=== PATIENT | female | born 1960 | race Caucasian/White ===

== ENCOUNTER 2020-09-04 15:18 | Inpatient (IN) | payer OTHER ==
[~2020-09-04] VITALS: Ht 162.6 cm; Wt 74.8 kg
[2020-09-04] MEDS ORDERED: PANTOPRAZOLE 40 MG 10ML VIAL IV NR (16:05)
[2020-09-04] MEDS ORDERED: ONDANSETRON HCL INJ 2MG/ML 2ML 2 MG/ML VIAL IV NR (16:05)
[2020-09-04] MEDS ORDERED: SODIUM CHLORIDE 0.9% 1000ML 1,000 ML IV STA (16:05)
[2020-09-04 16:22] LABS: BASOPHILS % 0.3 % (0.0-1.0); HEMATOCRIT 44.9 % (34.2-44.1); HEMOGLOBIN 15.6 g/dL (12.0-16.0); LYMPHOCYTES % 8.7 % (18.0-39.1); MEAN CORPUSCULAR HEMOGLOBIN 31.5 pg (28-32); MEAN CORPUSCULAR HGB CONC 34.7 g/dL (31-35); MEAN CORPUSCULAR VOLUME 90.5 fL (81-99); MONOCYTES # (AUTO) 0.7 (0.2-0.8); MONOCYTES % 5.9 % (4.4-11.3); NEUTROPHILS % 84.7 % (38.7-80.0); PLATELET COUNT 220 x10e3/uL (140-360); RED BLOOD COUNT 4.96 x10e6/uL (3.6-5.1); RED CELL DISTRIBUTION WIDTH 12.9 % (11.7-14.4)
[2020-09-04 16:26] LABS: INR 1.02
[2020-09-04 16:27] LABS: PARTIAL THROMBOPLASTIN TIME 33.7 seconds (23.8-35.5)
[2020-09-04 16:36] LABS: ALBUMIN 3.6 g/dL (3.5-5.0); ALBUMIN/GLOBULIN RATIO 0.8 (0.8-2.0); CALCIUM 9.5 mg/dL (8.4-10.2); CREATININE, SERUM 1.17 mg/dL (0.57-1.11); MAGNESIUM 1.7 MG/DL (1.3-2.1)
[2020-09-04 16:43] LABS: CREATINE KINASE MB 0.7 ng/mL (0-5.0)
[2020-09-04] MEDS ORDERED: POTASSIUM CHLORIDE 20 MEQ TAB CR PO NR (17:00)
[2020-09-04] MEDS ORDERED: IOPAMIDOL 370 MG/ML 200 ML INFUS..BTL INJ ONE (17:22)
[2020-09-04] MEDS ORDERED: SODIUM CHLORIDE 0.9% 50ML 50 ML ONE ×2 (17:22→19:43)
[2020-09-04 17:40] LABS: AMYLASE 70 U/L (25-125); LIPASE 18 U/L (8-78)
[2020-09-04 18:04] LABS: CLARITY,URINE CLOUDY (CLEAR); COLOR,URINE YELLOW (YELLOW); KETONES,URINE TRACE (NEGATIVE); LEUKOCYTE ESTERASE ,URINE 1+ (NEGATIVE); NITRITE,URINE POSITIVE (NEGATIVE); PROTEIN,URINE DIPSTICK >=300 (NEGATIVE)
[2020-09-04 18:19] LABS: BACTERIA,URINE MANY /HPF; EPITHELIAL CELLS,URINE FEW /LPF; RBC,URINE 21-50 /HPF (0-5); RENAL EPITHELIAL CELLS,URINE FEW; WBC,URINE (MAN) >50 /HPF (0-5)
[2020-09-04] MEDS ORDERED: CEFTRIAXONE SOD 1 GM/50 ML BAG IV ONE (19:30)
[2020-09-04] MEDS: SODIUM CHLORIDE 0.9% 1000ML 1,000 ML IV SCH (19:42)
[2020-09-04] MEDS ORDERED: CEFTRIAXONE SOD 1 GM VIAL ONE (19:42)
[2020-09-04 21:00] VITALS: BP 169/94
[2020-09-04 21:25] VITALS: BP 169/94
[2020-09-04 21:31] VITALS: BP 169/94
[2020-09-04] MEDS ORDERED: PLAVIX75 MG PO (21:35)
[2020-09-04] MEDS ORDERED: CYMBALTA60 MG PO (21:35)
[2020-09-04] MEDS ORDERED: METOPROLOL SUC100 MG PO (21:35)
[2020-09-04] MEDS: ONDANSETRON HCL INJ 2MG/ML 2ML 2 MG/ML VIAL IV PRN (22:30)
[2020-09-05] VITALS (8 sets, daily range): BP systolic 124–159; BP diastolic 74–98
[2020-09-05] MEDS: TRAMADOL HCL 50 MG TAB PO PRN ×2 (00:38→16:00)
[2020-09-05] MEDS: SODIUM CHLORIDE 0.9% 1000ML 1,000 ML IV SCH ×4 (05:20→20:37)
[2020-09-05 06:24] LABS: BASOPHILS % 0.5 % (0.0-1.0); EOSINOPHILS # (AUTO) 0.2 (0.0-0.4); EOSINOPHILS % 2.5 % (0.0-6.0); HEMATOCRIT 37.3 % (34.2-44.1); HEMOGLOBIN 12.4 g/dL (12.0-16.0); LYMPHOCYTES # (AUTO) 1.6 (1.0-3.2); LYMPHOCYTES % 18.1 % (18.0-39.1); MEAN CORPUSCULAR HEMOGLOBIN 31.2 pg (28-32); MEAN CORPUSCULAR HGB CONC 33.2 g/dL (31-35); MONOCYTES # (AUTO) 0.9 (0.2-0.8); MONOCYTES % 10.5 % (4.4-11.3); NEUTROPHILS % 67.8 % (38.7-80.0); PLATELET COUNT 184 x10e3/uL (140-360); RED BLOOD COUNT 3.97 x10e6/uL (3.6-5.1)
[2020-09-05 06:55] LABS: ALBUMIN 2.9 g/dL (3.5-5.0); ALBUMIN/GLOBULIN RATIO 0.8 (0.8-2.0); CALCIUM 8.5 mg/dL (8.4-10.2); CREATININE, SERUM 0.98 mg/dL (0.57-1.11)
[2020-09-05] MEDS: ONDANSETRON HCL INJ 2MG/ML 2ML 2 MG/ML VIAL IV PRN ×2 (07:43→15:43)
[2020-09-05] MEDS ORDERED: DOCUSATE SODIUM 100 MG CAP PO PRN (08:30)
[2020-09-05] MEDS ORDERED: ZOLPIDEM TARTRATE 5 MG TAB PO PRN (08:30)
[2020-09-05] MEDS ORDERED: CEFTRIAXONE SOD 1 GM/50 ML BAG IV SCH (09:00)
[2020-09-05] MEDS: CEFTRIAXONE SOD 1 GM in SODIUM CHLORIDE 0.9% 50ML 50 ML IV SCH (09:09)
[2020-09-05] MEDS: ENOXAPARIN SOD INJ 40 MG/0.4 ML SYR SC SCH ×2 (09:33→20:37)
[2020-09-05] MEDS: NICOTINE 21 MG/EA PATCH TOP SCH (12:35)
[2020-09-05] MEDS: FAMOTIDINE 20 MG TAB PO SCH (15:43)
[2020-09-05] MEDS ORDERED: SODIUM CHLORIDE 0.9% 1000ML 1,000 ML IV SCH (17:00)
[2020-09-05] MEDS ORDERED: ENOXAPARIN SOD INJ 40 MG/0.4 ML SYR SC SCH (17:00)
[2020-09-05] MEDS: METOPROLOL SUCCINATE 25 MG TAB XL PO SCH ×2 (17:00→21:35)
[2020-09-05] MEDS: METOPROLOL TARTRATE INJ 1 MG/ML VIAL IV PRN (18:50)
[2020-09-05] MEDS ORDERED: IBUPROFEN 400 MG TAB PO PRN (19:45)
[2020-09-05] MEDS ORDERED: ACETAMINOPHEN 325 MG TAB PO ONE (20:00)
[2020-09-06] VITALS (9 sets, daily range): BP systolic 120–172; BP diastolic 71–114
[2020-09-06] MEDS: METOPROLOL TARTRATE INJ 1 MG/ML VIAL IV PRN ×2 (00:12→16:14)
[2020-09-06] MEDS: SODIUM CHLORIDE 0.9% 1000ML 1,000 ML IV SCH ×2 (00:53→10:41)
[2020-09-06] MEDS: METOPROLOL SUCCINATE 25 MG TAB XL PO SCH ×2 (05:22→15:37)
[2020-09-06] MEDS: NICOTINE 21 MG/EA PATCH TOP SCH ×2 (09:00→10:41)
[2020-09-06] MEDS: FAMOTIDINE 20 MG TAB PO SCH ×2 (10:41→15:37)
[2020-09-06] MEDS: ENOXAPARIN SOD INJ 40 MG/0.4 ML SYR SC SCH (10:41)
[2020-09-06] MEDS: CEFTRIAXONE SOD 1 GM in SODIUM CHLORIDE 0.9% 50ML 50 ML IV SCH (10:41)
[2020-09-07] VITALS (8 sets, daily range): BP systolic 103–172; BP diastolic 69–84
[2020-09-07] MEDS: SODIUM CHLORIDE 0.9% 1000ML 1,000 ML IV SCH ×6 (00:53→20:28)
[2020-09-07] MEDS: ENOXAPARIN SOD INJ 40 MG/0.4 ML SYR SC SCH ×3 (01:20→21:00)
[2020-09-07] MEDS: METOPROLOL SUCCINATE 25 MG TAB XL PO SCH ×4 (01:21→21:16)
[2020-09-07] MEDS: NICOTINE 21 MG/EA PATCH TOP SCH (07:44)
[2020-09-07] MEDS: CEFTRIAXONE SOD 1 GM in SODIUM CHLORIDE 0.9% 50ML 50 ML IV SCH (08:48)
[2020-09-07] MEDS: FAMOTIDINE 20 MG TAB PO SCH ×2 (08:48→17:27)
[2020-09-07] MEDS ORDERED: NIFEDIPINE 10 MG CAP PO SCH (09:00)
[2020-09-07 09:52] LABS: BASOPHILS % 0.4 % (0.0-1.0); EOSINOPHILS # (AUTO) 0.1 (0.0-0.4); EOSINOPHILS % 0.6 % (0.0-6.0); HEMATOCRIT 35.9 % (34.2-44.1); HEMOGLOBIN 12.1 g/dL (12.0-16.0); LYMPHOCYTES # (AUTO) 1.6 (1.0-3.2); LYMPHOCYTES % 19.8 % (18.0-39.1); MEAN CORPUSCULAR HEMOGLOBIN 31.3 pg (28-32); MEAN CORPUSCULAR HGB CONC 33.7 g/dL (31-35); MONOCYTES # (AUTO) 0.9 (0.2-0.8); MONOCYTES % 11.5 % (4.4-11.3); NEUTROPHILS # (AUTO) 5.5 (2.1-6.9); NEUTROPHILS % 67.1 % (38.7-80.0); PLATELET COUNT 218 x10e3/uL (140-360); RED BLOOD COUNT 3.86 x10e6/uL (3.6-5.1)
[2020-09-07 10:23] LABS: ANION GAP 12.7 mmol/L (8-16); BLOOD UREA NITROGEN 6 mg/dL (7-26); BUN/CREATININE RATIO 8 (6-25); CALCIUM 8.7 mg/dL (8.4-10.2); CARBON DIOXIDE 28 mmol/L (22-29); CHLORIDE 104 mmol/L (98-107); CREATININE, SERUM 0.75 mg/dL (0.57-1.11); EST GLOMERULAR FILTRATION RATE > 60 ML/MIN (60-); GLUCOSE 118 mg/dL (74-118); SODIUM 142 mmol/L (136-145)
[2020-09-07 10:31] LABS: POTASSIUM 2.7 mmol/L (3.5-5.1)
[2020-09-07] MEDS ORDERED: POTASSIUM CHLORIDE 10MEQ EA PO ONE (10:50)
[2020-09-07] MEDS ORDERED: POTASSIUM CHLORIDE 20 MEQ TAB CR PO ONE (18:00)
[2020-09-07] MEDS: NIFEDIPINE CR 30 MG TAB PO SCH (21:00)
[2020-09-08] VITALS (7 sets, daily range): BP systolic 128–166; BP diastolic 73–104
[2020-09-08] MEDS: SODIUM CHLORIDE 0.9% 1000ML 1,000 ML IV SCH ×4 (00:53→21:20)
[2020-09-08] MEDS: METOPROLOL TARTRATE INJ 1 MG/ML VIAL IV PRN (05:21)
[2020-09-08] MEDS: METOPROLOL SUCCINATE 25 MG TAB XL PO SCH ×3 (05:22→21:15)
[2020-09-08] MEDS: FAMOTIDINE 20 MG TAB PO SCH ×2 (07:30→16:30)
[2020-09-08] MEDS: ONDANSETRON HCL INJ 2MG/ML 2ML 2 MG/ML VIAL IV PRN ×2 (08:39→12:30)
[2020-09-08 08:53] LABS: BASOPHILS # (AUTO) 0.1 (0.0-0.1); BASOPHILS % 0.6 % (0.0-1.0); EOSINOPHILS # (AUTO) 0.2 (0.0-0.4); EOSINOPHILS % 2.1 % (0.0-6.0); HEMATOCRIT 36.8 % (34.2-44.1); HEMOGLOBIN 12.7 g/dL (12.0-16.0); LYMPHOCYTES # (AUTO) 1.7 (1.0-3.2); LYMPHOCYTES % 19.8 % (18.0-39.1); MEAN CORPUSCULAR HEMOGLOBIN 31.1 pg (28-32); MEAN CORPUSCULAR HGB CONC 34.5 g/dL (31-35); MONOCYTES # (AUTO) 0.7 (0.2-0.8); MONOCYTES % 8.1 % (4.4-11.3); NEUTROPHILS # (AUTO) 5.8 (2.1-6.9); NEUTROPHILS % 68.8 % (38.7-80.0); PLATELET COUNT 309 x10e3/uL (140-360); RED BLOOD COUNT 4.09 x10e6/uL (3.6-5.1)
[2020-09-08] MEDS: NIFEDIPINE CR 30 MG TAB PO SCH ×2 (09:00→21:00)
[2020-09-08] MEDS: ENOXAPARIN SOD INJ 40 MG/0.4 ML SYR SC SCH ×2 (09:00→21:00)
[2020-09-08] MEDS: NICOTINE 21 MG/EA PATCH TOP SCH ×2 (09:00→19:28)
[2020-09-08] MEDS: CEFTRIAXONE SOD 1 GM in SODIUM CHLORIDE 0.9% 50ML 50 ML IV SCH ×2 (09:00→21:14)
[2020-09-08 09:09] LABS: BLOOD UREA NITROGEN 5 mg/dL (7-26); BUN/CREATININE RATIO 7 (6-25); CALCIUM 9.4 mg/dL (8.4-10.2); CARBON DIOXIDE 25 mmol/L (22-29); CHLORIDE 106 mmol/L (98-107); CREATININE, SERUM 0.71 mg/dL (0.57-1.11); EST GLOMERULAR FILTRATION RATE > 60 ML/MIN (60-); GLUCOSE 143 mg/dL (74-118); SODIUM 143 mmol/L (136-145)
[2020-09-08] MEDS ORDERED: POTASSIUM CHLORIDE 20 MEQ TAB CR PO ONE (10:30)
[2020-09-08] MEDS: TRAMADOL HCL 50 MG TAB PO PRN (21:21)
[2020-09-09] VITALS (8 sets, daily range): BP systolic 103–168; BP diastolic 49–80
[2020-09-09] MEDS: METOPROLOL SUCCINATE 25 MG TAB XL PO SCH ×3 (05:16→21:51)
[2020-09-09] MEDS: SODIUM CHLORIDE 0.9% 1000ML 1,000 ML IV SCH ×2 (06:47→16:28)
[2020-09-09] MEDS: CEFTRIAXONE SOD 1 GM in SODIUM CHLORIDE 0.9% 50ML 50 ML IV SCH ×2 (08:56→21:29)
[2020-09-09] MEDS: ENOXAPARIN SOD INJ 40 MG/0.4 ML SYR SC SCH ×2 (08:56→21:29)
[2020-09-09] MEDS: FAMOTIDINE 20 MG TAB PO SCH ×2 (08:56→16:28)
[2020-09-09] MEDS: NIFEDIPINE CR 30 MG TAB PO SCH ×2 (08:59→21:29)
[2020-09-09] MEDS: NICOTINE 21 MG/EA PATCH TOP SCH (09:01)
[2020-09-09] MEDS: TRAMADOL HCL 50 MG TAB PO PRN (16:31)
[2020-09-10] VITALS: BP 138/60
[2020-09-10] MEDS: SODIUM CHLORIDE 0.9% 1000ML 1,000 ML IV SCH (00:30)
[2020-09-10 04:00] VITALS: BP 123/62
[2020-09-10] MEDS: METOPROLOL SUCCINATE 25 MG TAB XL PO SCH (04:05)
[2020-09-10] MEDS ORDERED: NIFEDIPINE ER30 M1 PO (06:42)
[2020-09-10] MEDS ORDERED: KEFLEX125 MG/5 M PO (06:42)
[2020-09-10] MEDS ORDERED: NICODERM CQ1 EAC2 TOP (06:42)
[2020-09-10] MEDS ORDERED: POTASSIUM CHLORIDE 20 MEQ TAB CR PO NR (07:00)
[2020-09-10 08:07] VITALS: BP 124/64
[2020-09-10] MEDS ORDERED: ZOFRAN4 MG PO (08:18)
[2020-09-10] MEDS: FAMOTIDINE 20 MG TAB PO SCH (08:20)
[2020-09-10] MEDS: ONDANSETRON HCL INJ 2MG/ML 2ML 2 MG/ML VIAL IV PRN (08:30)
== END 2020-09-10 09:37 | disposition home or self-care (01) | DRG 872 ==
LOC: ER 15:31 → ERHOLD 19:29 → MED/SURG2 21:03
PROVIDERS: ADMIT Internal Medicine; ATTEND Internal Medicine
DX: A41.51 Sepsis due to Escherichia coli [E. coli] (principal); N17.9 Acute kidney failure, unspecified; N10 Acute pyelonephritis; N39.0 Urinary tract infection, site not specified; Z20.822 Contact with and (suspected) exposure to COVID-19; B96.20 Unspecified Escherichia coli [E. coli] as the cause of diseases classified elsewhere; K21.9 Gastro-esophageal reflux disease without esophagitis; K44.9 Diaphragmatic hernia without obstruction or gangrene; E87.6 Hypokalemia; F17.200 Nicotine dependence, unspecified, uncomplicated; I71.4 Abdominal aortic aneurysm, without rupture; R91.1 Solitary pulmonary nodule
CPT/HCPCS: 36415; 71045; 74177; 80048; 80053; 81001; 82150; 82270; 82550; 82553; 83605; 83690; 83735; 83880; 84132; 84484; 85025; 85610; 85730; 87040; 87071; 87086; 87186; 87205; 93005; 96361; 99284; J0696; J1650; J2405; J7030; Q9967; U0002